=== PATIENT | male | born 1940 | race Caucasian/White ===

== ENCOUNTER 2017-06-28 13:42 | Emergency (ER) | payer MEDICARE ==
[2017-06-28] MEDS ORDERED: EPINEPHrine 1:10,000 1 MG/10 ML Syringe IV ONE (13:43)
[2017-06-28] MEDS ORDERED: EPINEPHrine 1 MG/ML SDV IV ONE (13:43)
--- NOTE | 2017-06-28 14:51 | EDM.PDOC ---
ED HPI GENERAL MEDICAL PROBLEM - General Stated Complaint: CODE BLUE Time Seen by Provider: 06/28/17 13:42 Source of Information: Reports: EMS History Limitations: Reports: Other (CPR in progress) - History of Present Illness INITIAL COMMENTS - FREE TEXT/NARRATIVE: This 77 yo male patient was brought to the ED by [facility] with CPR in progress. EMS reports they were called to the patient's residence due to the patient being unresponsive. The patient's house carpenter helper reported that when she came to the patient's residence, the patient was lying in his bed sleeping. The house carpenter helper reported that he was breathing irregularly. She reached for his face and he slapped at her hands. The house carpenter helper then went back to doing the patient's laundry. The house carpenter helper called 911 when the patient had not moved and was not responding when she returned to the residence. EMS reports that the patient was initially breathing about 10 times per minute (agonal). EMS reported that the patient was initially in a fib with a rate in the 80's. When they moved the patient to their cot, the patient went asystolic, CPR was started , an IV was established, the patient was given IV epi and transported directly to the ED. Upon arrival in the ED, CPR was in progress. The patient was being ventilated by BVM. Once moved to the ED bed, the patient was pulseless and apneic. The media monitor demonstrated an agonal rhythm. The patient's pupils were fixed and dialated. With bag valve mask, lung sounds were clear and equal bilat. CPR was continued in the ED. Another IV was established. The patient was given a dose of EPI. 3 minutes after the EPI was given the patient continued to be apneic and pulseless. The patient was in PEA. The patient did have dark red blood visible in the posterior pharynx with no acute active bleeding. 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, Other Medication(s) - Related Data Allergies Allergy/AdvReac Type Severity Reaction Status Date / Time No Known Allergies Allergy Verified 01/06/15 16:13 Home Meds: Home Meds 2 Diabetic Medications 09/20/13 [History] 3 High Blood Pressure Pills 09/20/13 [History] Aspirin/Calcium Carbonate/Mag [Aspirin Buffered 325 mg Tab] 09/20/13 [History] Past Medical History Other Hematologic History: anticoagulation therapy Social & Family History - Tobacco Use Second Hand Smoke Exposure: No - Recreational Drug Use Recreational Drug Use: No - Living Situation & Occupation Living situation: Reports: with Family Occupation: Retired ED ROS GENERAL - Review of Systems Review Of Systems: Unable To Obtain (CPR in progress) ED EXAM, GENERAL - Physical Exam Exam: See Below Exam Limited By: Other (CPR in probress) General Appearance: Other (CPR) Eye Exam: Bilateral Eye: Other (pupils fixed and dialated) Ears: Normal External Exam Nose: Normal Inspection, Normal Mucosa, No Blood Throat/Mouth: Other (dark blood visible in posterior pharynx, numerous missing teeth) Head: Atraumatic Neck: Normal Inspection Respiratory/Chest: Lungs Clear (with ventilation via BVM) Cardiovascular: Other (no pulse in PEA) GI/Abdominal: Other (Male) Exam: Deferred Rectal (Males) Exam: Deferred Neurological: Unresponsive Skin Exam: Cool, Cyanosis Departure - Departure Time of Disposition: 13:46 Disposition: 20 Condition: Serious Clinical Impression: Cardiac arrest Referrals: PCP,None [Primary Care Provider] -
== END 2017-06-28 13:46 | disposition expired ==
LOC: DL.ED 13:42
DX: I46.9 Cardiac arrest, cause unspecified (principal)
CPT/HCPCS: 92950; 96374; 99285; J0171